=== PATIENT | female | born 1990 | race American Indian/Alaskan Native ===

== ENCOUNTER 2021-05-05 13:13 | Outpatient (CLI) | payer BC ==
--- NOTE | 2021-05-10 11:37 | Ultrasound Report ---
ULTRASOUND BREAST RIGHT LIMITED, 05/05/2021 CLINICAL INFORMATION / INDICATION: Patient's health care provider palpated a lump in the right subare olar breast.. TECHNIQUE: Targeted ultrasound evaluation was performed of the area of interest. COMPARISON: None. FINDINGS: Sonographic evaluation of the right subareolar breast does not demonstrate any mass, cyst, or suspici ous focal area of shadowing. There are a few mildly dilated ducts incidentally noted, but no signific ant abnormality noted. IMPRESSION: No sonographic evidence of malignancy. No sonographic correlate to account for the palpab le lump in the right subareolar breast. If clinical suspicion is strong, further evaluation with a di agnostic mammogram can be performed. Follow up recommendation: Unless otherwise clinically indicated, recommend patient return to routine screening mammography at age 40. BI-RADS Category 2: Benign. A normal or "negative" report should not preclude biopsy or follow-up of a clinically suspicious find ing. Signer Name: Whitney Merlos MD Signed: 05/10/2021 11:32 AM Workstation Name: [id number]
== END 2021-05-05 13:14 | disposition home or self-care (01) ==
LOC: SPVWC 13:13
PROVIDERS: ATTEND Obstetrics & Gynecology
DX: N63.41 Unspecified lump in right breast, subareolar (principal)